=== PATIENT | female | born 1985 ===

== ENCOUNTER 2020-11-14 18:09 | Inpatient (IN) ==
[2020-11-14] MEDS ORDERED: Dinoprostone 10 MG VAG.SUPP VAGINAL ONE (19:08)
[2020-11-14] MEDS ORDERED: Buffered Lidocaine 1% SYRIN 1 ml INTRADERM ONE (19:08)
[2020-11-14 20:23] LABS: Hematocrit 39 % (35-47); Hemoglobin 13.2 g/dL (12.0-16.0); Mean Corpuscular HGB Conc 34 g/dL (31-36); Mean Corpuscular Hemoglobin 32 pg (27-31); Mean Corpuscular Volume 92 fL (80-97); Mean Platelet Volume 11.1 fL (7.4-10.4); Platelet Count 116 10^3/uL (150-450); Red Blood Count 4.18 10^6 /uL (3.70-4.87); Red Cell Distribution Width 14 % (10-15); White Blood Count 7.7 10^3/uL (3.5-10.8)
[2020-11-14 20:35] LABS: ABS Monocytes 0.5 10^3/ul (0-0.8); ABS Neutrophils 5.1 10^3/ul (1.5-7.7); Eosinophil % 0.4 %; Lymphocyte % 25.9 %
[2020-11-14 20:37] LABS: Urine Benzodiazepine Screen None Detected (None Detect); Urine Cannabinoids Screen None Detected (None Detect); Urine Opiates Screen None Detected (None Detect)
[2020-11-15] MEDS ORDERED: Oxytocin 10 UNITS/ML 1 ML VIAL IM ONE (15:53)
[2020-11-15] MEDS ORDERED: Glycerin ADULT 2.4 gm SUPP PR PRN (15:53)
[2020-11-15] MEDS ORDERED: Witch Hazel PAD JAR TOPICAL PRN (15:53)
[2020-11-15] MEDS ORDERED: Dibucaine 1% OINT 28.35 GM TUBE PR PRN (15:53)
[2020-11-15] MEDS ORDERED: Lactated Ringers 1000 ml BAG 1,000 ML IV SCH (16:00)
[2020-11-15] MEDS ORDERED: Lidocaine 1% VIAL 10 MG/ML VIAL ONE (17:41)
[2020-11-16 06:34] LABS: ABS Basophils 0.1 10^3/ul (0-0.2); ABS Lymphocytes 1.8 10^3/ul (1.0-4.8); ABS Neutrophils 9.2 10^3/ul (1.5-7.7); Eosinophil % 0.3 %; Hematocrit 35 % (35-47); Hemoglobin 12.2 g/dL (12.0-16.0); Mean Corpuscular HGB Conc 36 g/dL (31-36); Mean Corpuscular Hemoglobin 33 pg (27-31); Mean Corpuscular Volume 92 fL (80-97); Mean Platelet Volume 11.1 fL (7.4-10.4); Platelet Count 118 10^3/uL (150-450); Red Blood Count 3.76 10^6 /uL (3.70-4.87); Red Cell Distribution Width 14 % (10-15); White Blood Count 12.1 10^3/uL (3.5-10.8)
[2020-11-17 08:22] VITALS: BP 100/54
== END 2020-11-17 13:15 | disposition home or self-care (01) | DRG 807 ==
LOC: MCHOBOUT 18:09 → MCHOB 11-15 04:33
PROVIDERS: ADMIT Obstetrics & Gynecology; ATTEND Obstetrics & Gynecology